=== PATIENT | female | born 1955 | race Hispanic/Latino ===

== ENCOUNTER 2017-08-30 18:19 | Observation (INO) | payer SELFPAY ==
--- NOTE | 2017-08-30 19:15 | RAD ---
CHEST ONE VIEW 08/30/17 HISTORY: Chest pain. COMPARISON: None. FINDINGS: Lungs are clear. No pneumothorax or effusion. Cardiac silhouette and mediastinal contours are within normal limits. IMPRESSION: No acute intrathoracic abnormality. POS: [facility]
[2017-08-30 19:24] LABS: #Basophils 0.1 thou/uL (0.0-0.2); #Eosinphils 0.2 thou/uL (0.0-0.7); #Lymphocytes 3.3 thou/uL (1.20-3.40); #Monocytes 0.8 thou/uL (0.11-0.59); #Neutrophils 3.8 thou/uL (1.40-6.50); %Basophils 0.8 % (0.0-1.0); %Lymphocytes 40.6 % (21.0-51.0); %Monocytes 9.3 % (0.0-10.0); %Neutrophils 47.4 % (42.0-75.0); Hemoglobin 11.3 g/dL (12.0-16.0); Mean Corpuscular HGB CONC 32.4 g/dL (32.0-36.0); Mean Corpuscular Hemoglobin 26.9 pg (27.0-31.0); Mean Corpuscular Volume 82.9 fl (81.0-99.0); Mean Platelet Volume 8.5 fL (7.4-10.4); Platelet Count 224 thou/uL (130-400); RBC Distribution Width 12.2 % (11.5-14.5); Red Blood Cell (RBC) Count 4.21 mill/uL (4.20-5.40); White Blood Cell (WBC) Count 8.1 thou/uL (4.8-10.8)
[2017-08-30 19:44] LABS: ALT (SGPT) 16 U/L (8-55); AST (SGOT) 19 U/L (5-34); Albumin 4.3 g/dL (3.5-5.0); Alkaline Phosphatase 128 U/L (40-150); Anion Gap 11 mmol/L (10-20); BUN (Urea Nitrogen) 20 mg/dL (9.8-20.1); Bilirubin, Total 0.4 mg/dL (0.2-1.2); Calc. Creatinine Clearance 0 mL/min (70-130); Calcium 9.6 mg/dL (7.8-10.44); Carbon Dioxide 28 mmol/L (22-29); Chloride 104 mmol/L (98-107); Estimated GFR-MDRD 71; Globulin 3.7 g/dL (2.4-3.5); Glucose 131 mg/dL (70-105); Lipase 36 U/L (8-78); Potassium 4.4 mmol/L (3.5-5.1); Sodium 139 mmol/L (136-145)
[2017-08-30] MEDS ORDERED: diphenhydrAMINE 50 MG/ML VIAL ONE (19:46)
[2017-08-30] MEDS ORDERED: Metoclopramide HCl 10 MG/2 ML VIAL ONE (19:46)
[2017-08-30 19:49] LABS: CKMB 4.2 ng/mL (0-6.6); Troponin I Less than 0.010 ng/mL (< 0.028)
[2017-08-30] MEDS ORDERED: Morphine 4 MG/ML VIAL ONE (21:43)
[2017-08-30 22:03] LABS: Bilirubin Negative (Negative); Blood, Urine Negative (Negative); Clarity CLEAR (Clear); Glucose, Urine (Dipstick) Negative (Negative); Leukocyte Trace (Negative); Nitrite Negative (Negative); Protein, Urine (Dipstick) Negative (Neg-Trace); Specific Gravity, Urine 1.011 (1.002-1.036); Urobilinogen 0.2 mg/dL (0.2-1.0)
[2017-08-30 22:08] LABS: Bacteria/HPF None Seen HPF (None Seen); Hyaline Casts/LPF 0-3 HYALINE CAST LPF (0-3 Hyaline); Pathc Cast-AUWi Flag 0.29 (0-2.49); RBC/HPF 0-3 HPF (0-3); Squamous Epithelial 0-3 HPF (0-3); WBC/HPF 0-3 HPF (0-3)
--- NOTE | 2017-08-30 22:08 | CT ---
CT ANGIOGRAM CHEST WITH CONTRAST 08/30/17 HISTORY: Chest pain. COMPARISON: Chest radiograph same day. CT angiogram chest performed after the intravenous administration of contrast. 3D rendering was provi ded. No proximal segmental pulmonary arterial filling defect. Pulmonary trunk size is normal. The aortic s ize is normal. A few hypodensities in the left lobe of the thyroid. No adenopathy. Limited evaluation upper abdomen is unremarkable. No focal air space consolidation, pneumothorax or effusion. No acute osseous abnormality. IMPRESSION: No acute intrathoracic abnormality. No proximal segmental pulmonary arterial filling defect. POS: [facility]
[2017-08-30] MEDS ORDERED: Ondansetron ODT 4 MG TAB SL PRN (22:57)
[2017-08-30] MEDS ORDERED: Ondansetron HCl/PF 4 MG/2 ML Vial IVP PRN (22:57)
[2017-08-30 23:02] VITALS: BMI 23.0
[2017-08-30 23:52] LABS: Troponin I Less than 0.010 ng/mL (< 0.028)
[2017-08-31 01:44] LABS: Troponin I 0.014 ng/mL (< 0.028)
[2017-08-31] MEDS ORDERED: Prevnar 13-Val Conj/PF 0.5 ML SYRINGE IM ONE (09:00)
[2017-08-31 09:28] LABS: Troponin I Less than 0.010 ng/mL (< 0.028)
--- NOTE | 2017-08-31 10:36 | PDOC.EVN ---
Event Note - Event Note Event Note: [facility]&P DICTATED #[id number] DC SUMMARY #[id number]
[2017-08-31 12:19] VITALS: BP 145/64; TEMP 98.4
--- NOTE | 2017-08-31 14:57 | HP ---
DATE OF ADMISSION: 08/31/2017. CHIEF COMPLAINT: Chest pain. HISTORY OF PRESENT ILLNESS: This is a 62-year-old female being admitted to the hospital because of e pigastric chest pain that sort of band-like in nature, radiating out to the left and then radiating t o her left upper extremities bilaterally. The patient states that the pain is more pulsatile in natu re, coming and going with more physical exertion activity. The patient also states that she is visit ing from [place] and was apparently brought here for further evaluation and care. She is also visitin g her family. The patient states that she was told in [place] that she might have colitis; however, s he was not treated for anything according to what she remembers. The patient at this point in time i s to be admitted to the Internal Medicine team. We will do a cardiac workup and follow up with resul ts once they are available. ALLERGIES: No known drug allergies. MEDICATIONS: See MAR. PAST MEDICAL HISTORY: Hypertension, anxiety, colitis. SOCIAL HISTORY: Denies any smoking or drinking. FAMILY HISTORY: The patient is unaware of any family history. REVIEW OF SYSTEMS: All systems reviewed. Pertinent positives in the HPI, otherwise negative. PHYSICAL EXAMINATION: VITAL SIGNS: Blood pressure is 147/80, respiratory rate is 16, pulse is 60, temperature is 97.8, sat uration is 97% on room air. GENERAL: The patient lying in bed comfortably, in no acute distress. HEENT: Pupils are equal, round, and reactive to light and accommodation. Extraocular muscles intact . Oral cavity moist and pink. Normocephalic, atraumatic, nontender, mobile thyroid noted. LUNG: Aerating well. No respiratory distress. Clear to auscultation bilaterally. No rales, rhonch i, wheezing appreciated. CARDIOVASCULAR: Regular rate and rhythm. S1 and S2. No murmurs, rubs or gallops appreciated. ABDOMEN: Positive bowel sounds, soft, nontender, no rebound or guarding noted. EXTREMITIES: 2+ peripheral pulses. No cyanosis, clubbing or edema in all 4 extremities. NEUROLOGIC: Cranial nerves II-XII intact. No loss of motor or sensory function in all 4 extremities . SKIN: Normal turgor. No rashes noted. LABORATORY DATA: CBC within normal limits. D-dimer slightly elevated at 0.89. BMP within normal li mits. First set of troponin is negative. Urinalysis is negative. CT of the chest does not show any PE. Chest x-ray does not show any acute cardiopulmonary pathology. ASSESSMENT: 1. Chest pain. 2. Abdominal pain. 3. Hypertension. PLAN: Admit to observation telemetry floor, trend cardiac enzymes and we will follow up with the pat ient when the results are available. The patient wishes to remain a full code at this point in time. Case and plan discussed with the patient at length. She understands and agrees with this plan.
--- NOTE | 2017-08-31 18:59 | DIS ---
DATE OF ADMISSION: 08/31/2017 DATE OF DISCHARGE: 08/31/2017 ADMITTING DIAGNOSES: Chest pain, abdominal pain, hypertension, diabetes mellitus. DISCHARGE DIAGNOSES: Chest pain, noncardiac in nature; abdominal pain, likely gastritis; hypertension, stable and diabetes mellitus. HOSPITAL COURSE: This is a 62-year-old female who was admitted to the hospital because of abdominal pain, chest pain and hypertension, was evaluated by Internal Medicine and had telemetry monitoring done over 24 hours, which did not show any acute cardiac dysrhythmias. Patient at point in time of discharge stated that her pain had been much improved. The patient was evaluated over 24- hour period, had troponins done 4 times over the course of 24-hour period, which did not rise. EKG and enzymes were normal. Patient's lipase levels were within normal limits and was advised to follow up with PCP outpatient for further management and care. At point in time of discharge, the patient was to resume her home medications and was given a prescription for Protonix to be taken and was also given a prescription for Flagyl to be taken in case if she develops any fevers or diarrhea. Patient was advised to follow up with her PCP in case she did develop fevers and diarrhea and come to the ER if she was having worsening of symptoms of any type. Patient at point in time of discharge denied any nausea, vomiting, diarrhea, constipation, chest pain, fevers, chills, or shortness of breath. DISPOSITION: Home FU: PCP in 1 week ACTIVITY: As tolerated with assistance as needed CONDITION: Stable PROGNOSIS: Good DIET: Low fat, low calorie high fiber diet MEDICATIONS: Protonix script given, flagyl given and resume home meds Both daughters at bedside. Case and plan discussed with the patient and family at length, in taiwanese. They understand and agree with this plan. PETE
--- NOTE | 2017-09-01 17:21 | EKG ---
Test Reason : Blood Pressure : / mmHG Vent. Rate : 087 BPM Atrial Rate : 087 BPM P-R Int : 148 ms QRS Dur : 086 ms QT Int : 334 ms P-R-T Axes : 039 -09 033 degrees QTc Int : 401 ms Normal sinus rhythm Septal infarct , age undetermined Abnormal ECG Confirmed by JOHNSON BATISTA ([id number]), market editor JILL CASTRO ([id number]) on 09/01/2017 5:21:22 PM Referred By: Confirmed By:JOHNSON BATISTA
== END 2017-08-31 12:37 | disposition home or self-care (01) ==
LOC: ERS 18:19 → 2SW 22:00
PROVIDERS: ADMIT Family Medicine; ATTEND Family Medicine
DX: R07.89 Other chest pain (principal); R10.9 Unspecified abdominal pain; I10 Essential (primary) hypertension; F41.9 Anxiety disorder, unspecified; E11.9 Type 2 diabetes mellitus without complications; Z79.4 Long term (current) use of insulin; Z79.899 Other long term (current) drug therapy
CPT/HCPCS: 36415; 71045; 71275; 80053; 81003; 81015; 82553; 83690; 83735; 84484; 85025; 85379; 93005; 96365; 96375; G0378; J1200; J2270; J2765